=== PATIENT | male | born 2000 | race Two or more races ===

== ENCOUNTER 2019-09-09 08:42 | Emergency (ER) | payer OTHER ==
[2019-09-09 09:03] VITALS: BP 149/64; PULSE 95; TEMP 98.4; BMI 23.7
[2019-09-09] MEDS ORDERED: DEXAMETHASONE LIQUID 0.5 MG/5 ML PO ONE (09:07)
[2019-09-09] MEDS ORDERED: ALBUTEROL SO4 2.5/IPRATROPIUM 0.5 INH SOL 3 ML VIAL.NEB. NEB ONE ×2 (09:07→09:22)
--- NOTE | 2019-09-09 09:17 | PDOC ---
History of Present Illness - General Chief Complaint: Cold Symptoms Stated Complaint: SOB/COLD SYMPTOMS Time Seen by Provider: 09/09/19 09:01 History Source: Patient Exam Limitations: Clinical Condition - History of Present Illness Initial Comments: 09/09/19 09:13 Patient with past medical history of childhood asthma presented with complaint of 2-day history of nasal congestion, chest tightness, intermittent shortness of breath and 1 month history of dry cough. Patient reports tactile fever for 2 days but denies chills, body aches, chest pain, palpitations, numbness or tingling sensation. Denies nausea or vomiting, headache or dizziness. Patient has not taken anything for symptoms. Patient and mother report has not needed asthma medication for many years. Denies any other symptoms Is this a multiple visit Asthma Patient?: No Past History - Past Medical History Allergies/Adverse Reactions: Allergies Allergy/AdvReac Type Severity Reaction Status Date / Time No Known Allergies Allergy Verified 06/17/15 18:59 Home Medications: Ambulatory Orders Albuterol Sulfate Inhaler - [Ventolin Hfa Inhaler -] 2 inh PO Q6H #1 inh Ibuprofen [Motrin -] 600 mg PO QID PRN 09/09/19 Methylprednisolone [Medrol Dose Vineet] 4 mg PO ASDIR #21 tablet 09/09/19 Montelukast Na [Singulair -] 10 mg PO DAILY #7 tablet 09/09/19 COPD: No - Immunization History Immunization Up to Date: Yes - Psycho Social/Smoking Cessation Hx Smoking History: Current every day smoker Have you smoked in the past 12 months: Yes Information on smoking cessation initiated: No Hx Alcohol Use: Yes Drug/Substance Use Hx: Yes (weed last time 2 days ago) Substance Use Type: None Review of Systems - Review of Systems Able to Perform ROS?: Yes Is the patient limited Iraqi proficient: No Constitutional: Yes: Fever (tactile). No: Malaise, Weakness HEENTM: Yes: Symptoms Reported, See HPI, Nose Congestion. No: Eye Pain, Blurred Vision, Tearing, Recent change in vision, Double Vision, Cataracts, Ear Pain, Ocular Prothesis, Ear Discharge, Nose Pain, Tinnitus, Nose Bleeding, Hearing Loss, Throat Pain, Throat Swelling, Mouth Pain, Dental Problems, Difficulty Swallowing, Mouth Swelling, Other Respiratory: Yes: Symptoms reported, See HPI, Cough, Shortness of Breath ( intermittent), Wheezing (intermittent). No: Orthopnea, SOB with Exertion, SOB at Rest, Stridor, Productive cough, Hemoptysis, Other Cardiac (ROS): No: Symptoms Reported, See HPI, Chest Pain, Edema, Irregular Heart Rate, Lightheadedness, Palpitations, Syncope, Chest Tightness, Other ABD/GI: No: Symptoms Reported, Nausea, Vomiting Musculoskeletal: No: Symptoms Reported Integumentary: No: Symptoms Reported, Rash Neurological: No: Symptoms reported, Headache, Numbness, Paresthesia, Weakness, Dizziness All Other Systems: Reviewed and Negative *Physical Exam - Vital Signs Last Vital Signs Temp Pulse Resp BP Pulse Ox 98.4 F 95 H 18 149/64 96 09/09/19 08:52 09/09/19 08:52 09/09/19 08:52 09/09/19 08:52 09/09/19 08:52 - Physical Exam 09/09/19 09:16 GENERAL: Well developed, well nourished. Awake and alert. No acute distress. HEENT: Normocephalic, atraumatic. PERRLA, EOMI. No conjunctival pallor. Sclera are non-icteric. Moist mucous membranes. Oropharynx is clear. NECK: Supple. Full ROM. CARDIOVASCULAR: Regular rate and rhythm. No murmurs, rubs, or gallops. Distal pulses are 2+ and symmetric. PULMONARY: No evidence of respiratory distress. Diffuse mild expiratory wheezing. No rales or rhonchi. ABDOMINAL: Soft. Non-tender. Non-distended. No rebound or guarding. No organomegaly. Normoactive bowel sounds. MUSCULOSKELETAL Normal range of motion at all joints. SKIN: Warm and dry. Normal capillary refill. No rashes. No cyanosis. NEUROLOGICAL: Alert, awake, appropriate. Gait is normal without ataxia. PSYCHIATRIC: Cooperative. Good eye contact. Appropriate mood General Appearance: Yes: Nourished, Appropriately Dressed. No: Apparent Distress ED Treatment Course - RADIOLOGY Radiology Studies Ordered: Category Date Time Status CHEST PA & LAT [RAD] Stat Radiology 09/09/19 09:07 Ordered Medical Decision Making - Medical Decision Making 09/09/19 09:14 Patient with past medical history of childhood asthma presented with complaint of 2-day history of nasal congestion, chest tightness, intermittent shortness of breath and 1 month history of dry cough. Patient reports tactile fever for 2 days but denies chills, body aches, chest pain, palpitations, numbness or tingling sensation. Denies nausea or vomiting, headache or dizziness. Patient has not taken anything for symptoms. Patient and mother report has not needed asthma medication for many years. Denies any other symptoms Exam significant for diffuse expiratory wheeze with patient in no acute respiratory distress. Normal cardio exam. No pharyngeal erythema. Symptoms likely asthma exacerbation due to change of weather versus less likely pneumonia. Checks x-ray ordered to rule out pneumonia. DuoNeb to treatment ordered for wheezing and Decadron 10 mg p.o. ordered for bronchospasm. Treat based on x-ray results 09/09/19 10:02 Chest x-ray shows no acute infiltrate or pathology. Patient reported improvement in wheezing with DuoNeb and Decadron. Patient stable for discharge on outpatient management on Ventolin as needed for wheezing and Medrol Vineet for 5 days with pulmonology follow-up Discharge - Discharge Information Problems reviewed: Yes Clinical Impression/Diagnosis: URI, acute, Cough in adult, Bronchospasm, acute Condition: Stable Disposition: HOME - Admission No - Additional Discharge Information Prescriptions: Albuterol Sulfate Inhaler - [Ventolin Hfa Inhaler -] 2 inh PO Q6H #1 inh Methylprednisolone [Medrol Dose Vineet] 4 mg PO ASDIR #21 tablet Montelukast Na [Singulair -] 10 mg PO DAILY #7 tablet - Follow up/Referral Referrals: Clifton Long MD [Staff Physician] - - Patient Discharge Instructions Patient Printed Discharge Instructions: DI for Asthma -- Adult, DI for Viral Upper Respiratory Infection -- Adult Additional Instructions: Your chest x-ray was normal and shows no pneumonia. Your symptoms likely from as well as exacerbated by the change of weather. Take prescribed medication as prescribed for symptoms. Use prescribed Ventolin as needed for shortness of breath. 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
[2019-09-09] MEDS ORDERED: DEXAMETHASONE SOD PHOSPHATE 10 MG/1 ML VIAL ONE (09:22)
== END 2019-09-09 10:02 | disposition home or self-care (01) ==
LOC: JERFT 08:42
PROC: 3E0F7GC Introduction of Other Therapeutic Substance into Respiratory Tract, Via Natural or Artificial Opening (ICD-10-PCS; principal; 2019-09-09)
DX: J06.9 Acute upper respiratory infection, unspecified (principal); J98.01 Acute bronchospasm; Z87.09 Personal history of other diseases of the respiratory system; F17.210 Nicotine dependence, cigarettes, uncomplicated
CPT/HCPCS: 71046-TC-FY; 94640; 99281-25